=== PATIENT | male | born 1980 | race African-American/Black ===

== ENCOUNTER 2021-07-19 04:55 | Observation (INO) ==
[2021-07-19 06:15] LABS: ABS Basophils 0.1 10^3/ul (0-0.2); ABS Neutrophils 5.1 10^3/ul (1.5-7.7); Eosinophil % 0.5 %; Hematocrit 36 % (42-52); Hemoglobin 12.2 g/dL (14.0-18.0); Lymphocyte % 24.5 %; Mean Corpuscular HGB Conc 34 g/dL (31-36); Mean Corpuscular Hemoglobin 30 pg (27-31); Mean Corpuscular Volume 86 fL (80-94); Mean Platelet Volume 8.1 fL (7.4-10.4); Platelet Count 277 10^3/uL (150-450); Red Blood Count 4.12 10^6 /uL (4.18-5.48); Red Cell Distribution Width 14 % (10-15); White Blood Count 8.2 10^3/uL (3.5-10.8)
[2021-07-19 06:36] LABS: Troponin I 0.06 ng/mL (<0.03)
[2021-07-19 06:37] LABS: ALT 18 U/L (7-52); Albumin 4.3 g/dL (3.2-5.2); Albumin/Globulin Ratio 1.3 (1-3); Alkaline Phosphatase 85 U/L (35-149); Anion Gap 9 mmol/L (2-11); Blood Urea Nitrogen 17 mg/dL (6-24); CO2 Carbon Dioxide 30 mmol/L (22-32); Calcium 10.1 mg/dL (8.6-10.3); Chloride 97 mmol/L (101-111); Globulin 3.3 g/dL (2-4); Glucose 108 mg/dL (70-100); Magnesium 1.7 mg/dL (1.9-2.7); Potassium 3.5 mmol/L (3.5-5.0); Sodium 136 mmol/L (135-145); Total Protein 7.6 g/dL (6.4-8.9); eGFR CKD-EPI 98.8 (>60)
[2021-07-19 06:38] LABS: AST 39 U/L (13-39); Creatine Kinase 1317 U/L (10-223)
[2021-07-19 06:47] LABS: Activated Partial Thrombo Time 33.3 seconds (26.0-38.0); INR 1.3 (0.86-1.15)
[2021-07-19] MEDS ORDERED: LORazepam 2 mg VIAL 1 ml IV PUSH ONE (06:51)
[2021-07-19] MEDS ORDERED: Lorazepam PYXIS KEY PRN (06:51)
[2021-07-19] MEDS ORDERED: Magnesium Sulfate IV 1GM/100ML 1 GM/100 ML BAG IV ONE (06:51)
[2021-07-19 07:10] LABS: TSH Ultra Thyroid Stim Horm 0.97 mcIU/mL (0.34-5.60)
[2021-07-19 12:04] LABS: HDL Cholesterol 55.4 mg/dL
[2021-07-19 14:35] LABS: Urine Appearance Clear; Urine Bilirubin Negative (Negative); Urine Blood 1+ (Negative); Urine Color Yellow; Urine Glucose Negative (Negative); Urine Ketones 1+ (Negative); Urine Nitrite Negative (Negative); Urine Protein Negative (Negative); Urine Specific Gravity 1.014 (1.002-1.030); Urine Urobilinogen Negative (Negative)
[2021-07-19 14:51] LABS: Urine Benzodiazepine Screen None Detected (None Detect); Urine Cannabinoids Screen Presumptive Positive (None Detect); Urine Opiates Screen Presumptive Positive (None Detect)
[2021-07-19 14:54] LABS: Urine Bacteria Absent (Absent); Urine Red Blood Cell 1+(3-5/hpf) (Absent); Urine White Blood Cell Trace(0-5/hpf) (Absent)
[2021-07-20 08:26] VITALS: BP 121/70
== END 2021-07-20 17:00 | disposition home or self-care (01) ==
LOC: ED 04:55 → EDHOLD 04:55 → MEDTELE 14:15
PROVIDERS: ADMIT Internal Medicine; ATTEND Internal Medicine